=== PATIENT | female | born 1950 | race Caucasian/White ===

== ENCOUNTER 2022-09-07 09:11 | Inpatient (IN) | payer MEDICARE, OTHER ==
[~2022-09-07] VITALS: Ht 170.2 cm; Wt 89.9 kg
[2022-09-07] MEDS ORDERED: SODIUM CHLORIDE 0.9% 1,000 ML IV ONE ×2 (11:15)
[2022-09-07 12:31] LABS: Basophils # (auto) 0 10 ^3/uL (0-0.2); Basophils % (auto) 0.4 % (0.0-2.0); Eosinophils # (auto) 0 10 ^3/uL (0-0.8); Hematocrit 43.5 % (36.0-46.0); Hemoglobin 14.5 g/dL (12.2-16.2); Lymphocytes # (auto) 1.1 10 ^3/uL (0.4-5.4); Lymphocytes % (auto) 10.8 % (10.0-50.0); Mean Corpuscular Hemoglobin 31.6 pg (28.0-32.0); Mean Corpuscular Hgb Conc. 33.2 g/dL (32.0-36.0); Mean Corpuscular Volume 94.9 fL (80.0-100.0); Monocytes # (auto) 0.6 10 ^3/uL (0-1.3); Monocytes % (auto) 5.6 % (0.0-12.0); Neutrophils # (auto) 8.2 10 ^3/uL (1.6-8.6); Neutrophils % (auto) 83.2 % (37.0-80.0); Nucleated Red Blood Cells % 0.1 %; Red Blood Cells 4.58 10^6/uL (4.0-5.20); Red Cell Distribution Width 16.8 % (11.8-14.3); White Blood Cell 9.8 10^3/uL (4.4-10.8)
[2022-09-07 12:39] LABS: INR 1.41 (0.9-1.15); Partial Thromboplastin Time 30.3 sec (24.6-33.4)
[2022-09-07 12:57] LABS: Albumin 3.3 g/dL (3.4-5.0); BUN/Creatinine Ratio 10.9; Calcium 8.5 mg/dL (8.5-10.1); Magnesium 2.1 mg/dL (1.6-2.6); Potassium 3.8 mmol/L (3.5-5.1)
[2022-09-07 12:59] LABS: Bilirubin, Total 0.7 mg/dL (0.2-1.0); Total Protein 6.4 g/dL (6.4-8.2)
[2022-09-07] MEDS ORDERED: cefTRIAXone 1GM/50ML D5W 50 ML IV ONE (13:30)
[2022-09-07] MEDS ORDERED: FUROSEMIDE 20 MG/2 ML VIAL IV ONE (13:30)
[2022-09-07] MEDS ORDERED: dilTIAZem 25 MG/5 ML VIAL IV ONE (13:30)
[2022-09-07] MEDS: ACETAMINOPHEN 500 MG TAB PO PRN (16:14)
[2022-09-07] MEDS ORDERED: dilTIAZem 125mg/125ml BAG KIT 125 ML IV SCH (16:45)
[2022-09-07] MEDS ORDERED: AMIODARONE HCL 150 MG in D5W 5% 100 ML IV ONE (16:45)
[2022-09-07] MEDS ORDERED: AMIODARONE 450mg/250ml AE 250 ML IV SCH (17:00)
[2022-09-07 17:12] LABS: Urine Bacteria MOD /hpf (None Seen); Urine Blood 1+ /uL (Negative); Urine Mucus FEW (None Seen); Urine Specific Gravity 1.018 (1.001-1.035); Urine WBC 224 /hpf (0 - 5); Urine WBC Clumps PRESENT /hpf (None Seen)
[2022-09-07 17:35] LABS: Cannabinoid Screen, Urine NEGATIVE (NEGATIVE); Opiate Scree,Urine NEGATIVE (NEGATIVE)
[2022-09-07 17:37] LABS: Alcohol, Urine < 3.0 mg/dL (0-10); Amphetamine Screen, Urine NEGATIVE (NEGATIVE); Barbiturate Scree,Urine NEGATIVE (NEGATIVE); Benzodiazephine Screen, Urine NEGATIVE (NEGATIVE); Cocaine Screen, Urine NEGATIVE (NEGATIVE); Phencyclidine Screen, Urine NEGATIVE (NEGATIVE)
[2022-09-07 22:00] VITALS: BP 110/61
[2022-09-07 22:05] VITALS: BP 106/68
[2022-09-07 23:00] VITALS: BP 103/61
[2022-09-07] MEDS: AMIODARONE 450mg/250ml AE 250 ML IV SCH (23:00)
[2022-09-08] VITALS (17 sets, daily range): BP systolic 67–131; BP diastolic 29–86
[2022-09-08] MEDS: ACETAMINOPHEN 500 MG TAB PO PRN ×2 (00:42→15:56)
[2022-09-08] MEDS: AMIODARONE 450mg/250ml AE 250 ML IV SCH (05:56)
[2022-09-08] MEDS: cefTRIAXone 1GM/50ML D5W 50 ML IV SCH (09:25)
[2022-09-08] MEDS ORDERED: FUROSEMIDE 20 MG/2 ML VIAL IV SCH (10:00)
[2022-09-08] MEDS ORDERED: FOLIC ACID 1 MG TAB PO ONE (11:30)
[2022-09-08] MEDS ORDERED: LORazepam 0.5 MG TAB PO PRN (11:30)
[2022-09-08] MEDS ORDERED: DOXYCYCLINE 100 MG TAB/CAP PO ONE (11:30)
[2022-09-08] MEDS ORDERED: METOPROLOL TARTRATE 25 MG TAB PO ONE (11:30)
[2022-09-08] MEDS ORDERED: THIAMINE HCL 100 MG TAB PO ONE (11:30)
[2022-09-08] MEDS ORDERED: FUROSEMIDE 40 MG/4 ML VIAL IV ONE (11:45)
[2022-09-08] MEDS ORDERED: DILT-14 PO (16:31)
[2022-09-08] MEDS ORDERED: GABA300C10 PO (16:31)
[2022-09-08] MEDS ORDERED: DABI150C5 PO (16:32)
[2022-09-08] MEDS ORDERED: REMDESIVIR PER PHARMACY 0 ML IV SCH (16:45)
[2022-09-08] MEDS ORDERED: REMDESIVIR 200 MG in NS 210ml LOADING DOSE ADULT IV ONE (17:15)
[2022-09-08] MEDS ORDERED: METOPROLOL TARTRATE 25 MG TAB PO SCH (19:30)
[2022-09-08] MEDS: DOXYCYCLINE 100 MG TAB/CAP PO SCH (21:01)
[2022-09-08] MEDS: AMIODARONE HCL 200 MG TAB PO SCH (21:01)
[2022-09-08] MEDS: GABAPENTIN 300 MG CAP PO SCH (21:01)
[2022-09-08] MEDS: CARVEDILOL 3.125 MG TAB PO SCH (21:02)
[2022-09-08] MEDS: DABIGATRAN 75 MG CAP PO SCH (21:02)
[2022-09-08] MEDS ORDERED: DABIGATRAN 75 MG CAP PO SCH (22:00)
[2022-09-08 23:55] LABS: Basophils # (auto) 0 10 ^3/uL (0-0.2); Basophils % (auto) 0.3 % (0.0-2.0); Eosinophils # (auto) 0 10 ^3/uL (0-0.8); Hematocrit 44.2 % (36.0-46.0); Hemoglobin 14.7 g/dL (12.2-16.2); Lymphocytes # (auto) 1.4 10 ^3/uL (0.4-5.4); Lymphocytes % (auto) 16.6 % (10.0-50.0); Mean Corpuscular Hemoglobin 32.2 pg (28.0-32.0); Mean Corpuscular Hgb Conc. 33.3 g/dL (32.0-36.0); Mean Corpuscular Volume 96.5 fL (80.0-100.0); Monocytes # (auto) 0.3 10 ^3/uL (0-1.3); Monocytes % (auto) 4.1 % (0.0-12.0); Neutrophils # (auto) 6.6 10 ^3/uL (1.6-8.6); Nucleated Red Blood Cells % 0.1 %; Red Blood Cells 4.58 10^6/uL (4.0-5.20); Red Cell Distribution Width 16.5 % (11.8-14.3); White Blood Cell 8.3 10^3/uL (4.4-10.8)
[2022-09-09 00:25] LABS: Anion Gap 12 (5-15); BUN/Creatinine Ratio 14.2; Blood Urea Nitrogen 18 mg/dL (7-18); Calcium 8.5 mg/dL (8.5-10.1); Carbon Dioxide 26 mmol/L (21-32); Chloride 104 mmol/L (98-107); GFR African American 53 mL/min; GFR Non-African American 44 mL/min; Glucose 106 mg/dL (74-106); Potassium 3.4 mmol/L (3.5-5.1); Sodium 142 mmol/L (136-145)
[2022-09-09 00:26] LABS: Lactic Acid w/Reflex 2.1 mmol/L (0.4-2.0)
[2022-09-09 00:38] LABS: Alanine Aminotransferase 21 U/L (13-56); Alkaline Phosphatase 97 U/L (45-117); Aspartate Aminotransferase 40 U/L (15-37); Bilirubin, Total 0.6 mg/dL (0.2-1.0); Total Protein 6.2 g/dL (6.4-8.2)
[2022-09-09 00:39] LABS: Thyroid Stimulating Hormone 5.7 uIU/mL (0.358-3.74)
[2022-09-09 01:42] LABS: CRP High Sensitivity > 19.0 mg/dL (< 0.3)
[2022-09-09 05:00] VITALS: BP 94/68
[2022-09-09 06:15] LABS: Basophils # (auto) 0 10 ^3/uL (0-0.2); Basophils % (auto) 0.3 % (0.0-2.0); Eosinophils # (auto) 0 10 ^3/uL (0-0.8); Hematocrit 43.4 % (36.0-46.0); Hemoglobin 14.5 g/dL (12.2-16.2); Lymphocytes # (auto) 1.7 10 ^3/uL (0.4-5.4); Lymphocytes % (auto) 16.8 % (10.0-50.0); Mean Corpuscular Hemoglobin 31.8 pg (28.0-32.0); Mean Corpuscular Hgb Conc. 33.5 g/dL (32.0-36.0); Mean Corpuscular Volume 95.1 fL (80.0-100.0); Monocytes # (auto) 0.5 10 ^3/uL (0-1.3); Monocytes % (auto) 5.5 % (0.0-12.0); Neutrophils # (auto) 7.6 10 ^3/uL (1.6-8.6); Neutrophils % (auto) 77.4 % (37.0-80.0); Red Blood Cells 4.56 10^6/uL (4.0-5.20); Red Cell Distribution Width 16.3 % (11.8-14.3); White Blood Cell 9.9 10^3/uL (4.4-10.8)
[2022-09-09 06:51] LABS: Albumin 2.9 g/dL (3.4-5.0); Calcium 8.4 mg/dL (8.5-10.1); Potassium 3.2 mmol/L (3.5-5.1)
[2022-09-09 06:53] LABS: BUN/Creatinine Ratio 18.5
[2022-09-09 06:55] LABS: Bilirubin, Total 0.6 mg/dL (0.2-1.0); Total Protein 5.8 g/dL (6.4-8.2)
[2022-09-09 09:00] VITALS: BP 96/66
[2022-09-09] MEDS: cefTRIAXone 1GM/50ML D5W 50 ML IV SCH (09:40)
[2022-09-09] MEDS: THIAMINE HCL 100 MG TAB PO SCH (09:54)
[2022-09-09] MEDS: FOLIC ACID 1 MG TAB PO SCH (09:54)
[2022-09-09] MEDS: AMIODARONE HCL 200 MG TAB PO SCH ×2 (09:54→22:14)
[2022-09-09] MEDS: CARVEDILOL 3.125 MG TAB PO SCH ×3 (09:55→22:13)
[2022-09-09] MEDS: MULTIPLE VITAMIN TAB PO SCH (09:55)
[2022-09-09] MEDS: DOXYCYCLINE 100 MG TAB/CAP PO SCH ×2 (09:55→22:14)
[2022-09-09] MEDS: DABIGATRAN 75 MG CAP PO SCH ×2 (09:55→22:14)
[2022-09-09 12:38] VITALS: BP 111/68
[2022-09-09] MEDS: EMPAGLIFLOZIN 10 MG TAB PO SCH (13:15)
[2022-09-09 16:52] VITALS: BP 101/65
[2022-09-09] MEDS: REMDESIVIR 100mg 100 MG in SODIUM CHL 0.9% 230 ML IV SCH (17:15)
[2022-09-09 21:45] VITALS: BP 97/65
[2022-09-09] MEDS: GABAPENTIN 300 MG CAP PO SCH (22:14)
[2022-09-10 06:26] LABS: Albumin 2.8 g/dL (3.4-5.0); BUN/Creatinine Ratio 27.3; Bilirubin, Total 0.6 mg/dL (0.2-1.0); Calcium 8.7 mg/dL (8.5-10.1); Magnesium 2.1 mg/dL (1.6-2.6); Potassium 3.1 mmol/L (3.5-5.1); Total Protein 5.5 g/dL (6.4-8.2)
[2022-09-10 09:00] VITALS: BP 98/63
[2022-09-10] MEDS: cefTRIAXone 1GM/50ML D5W 50 ML IV SCH (09:24)
[2022-09-10] MEDS: THIAMINE HCL 100 MG TAB PO SCH (09:24)
[2022-09-10] MEDS: MULTIPLE VITAMIN TAB PO SCH (09:24)
[2022-09-10] MEDS: DOXYCYCLINE 100 MG TAB/CAP PO SCH (09:24)
[2022-09-10] MEDS: FOLIC ACID 1 MG TAB PO SCH (09:24)
[2022-09-10] MEDS: EMPAGLIFLOZIN 10 MG TAB PO SCH (09:25)
[2022-09-10] MEDS: DABIGATRAN 75 MG CAP PO SCH (09:28)
[2022-09-10] MEDS: AMIODARONE HCL 200 MG TAB PO SCH (09:30)
[2022-09-10] MEDS ORDERED: CARVEDILOL 3.125 MG TAB PO SCH (10:00)
[2022-09-10] MEDS ORDERED: POTASSIUM EFFERVESENT TAB 25 MEQ GT SCH (10:00)
[2022-09-10 13:00] VITALS: BP 93/62
[2022-09-10 16:22] VITALS: BP 98/56
[2022-09-10 16:46] VITALS: BP 105/52
[2022-09-10] MEDS: REMDESIVIR 100mg 100 MG in SODIUM CHL 0.9% 230 ML IV SCH (17:19)
== END 2022-09-10 17:43 | disposition short-term general hospital (02) | DRG 177 ==
LOC: ER 09:11 → EDBD 09:11 → TELE 16:35 → DOU IN ICU 21:45 → TELE-EAST 09-08 18:57
PROVIDERS: ADMIT Nurse Practitioner Family; ATTEND Student in an Organized Health Care Education/Training Program
PROC: XW033E5 Introduction of Remdesivir Anti-infective into Peripheral Vein, Percutaneous Approach, New Technology Group 5 (ICD-10-PCS; principal; 2022-09-08)
DX: U07.1 COVID-19 (principal); I21.A1 Myocardial infarction type 2; J96.01 Acute respiratory failure with hypoxia; J18.9 Pneumonia, unspecified organism; I50.21 Acute systolic (congestive) heart failure; E44.1 Mild protein-calorie malnutrition; N39.0 Urinary tract infection, site not specified; I11.0 Hypertensive heart disease with heart failure; I48.91 Unspecified atrial fibrillation; R74.01 Elevation of levels of liver transaminase levels; E66.9 Obesity, unspecified; Z20.822 Contact with and (suspected) exposure to COVID-19; Z86.73 Personal history of transient ischemic attack (TIA), and cerebral infarction without residual deficits; Z89.422 Acquired absence of other left toe(s); Z28.310 Unvaccinated for COVID-19; Z68.31 Body mass index [BMI] 31.0-31.9, adult; Z86.718 Personal history of other venous thrombosis and embolism
CPT/HCPCS: 36415; 70450; 71045; 80053; 80307; 81001; 82140; 82306; 82728; 83036; 83605; 83615; 83735; 83880; 84443; 84484; 85025; 85379; 85610; 85730; 86141; 87040; 87426; 87804; 93005; 93306; 96361; 96365; 96367; 96375; 97163; G0378; J0696; J7060